=== PATIENT | male | born 1970 | race Asian ===

== ENCOUNTER 2017-07-13 06:00 | Emergency (ER) | payer OTHER ==
[~2017-07-13] VITALS: Ht 167.6 cm; Wt 59.0 kg
--- NOTE | 2017-07-13 06:00 | NUR ---
PATIENT BIB [facility] TO ER BED 2.
[2017-07-13 06:10] VITALS: BP 148/80
--- NOTE | 2017-07-13 06:20 | NUR ---
PT CAME INTO ED VIA EMS. PT STATES HE ARRIVED AT HIS DIALASIS APPOINTMENT BUT COULD NOT GET OUT OF HIS CAR D/T SEVERE RIGHT UPPER LEG PAIN. THE DIALASIS FACILITY BROUGHT PT INTO BUILDING WITH A WHEEL CHAIR. PT REFUSED SERVICE AND CALLED 911. PT VSS STABLE. PAIN IS 10/10. AWARE. CONTINUE TO MONITOR.
[2017-07-13 06:48] LABS: BASOPHILS # (AUTO) 0.2 K/uL (0.00-0.22); BASOPHILS % (AUTO) 2.9 % (0.0-2.0); EOSINOPHILS # (AUTO) 0.3 K/uL (0-0.4); EOSINOPHILS % (AUTO) 3.9 % (0.0-4.0); HEMATOCRIT 31.4 % (36-52); HEMOGLOBIN 10.4 g/dL (12.0-18.0); LYMPHOCYTES # (AUTO) 1.9 K/uL (2.0-11.5); LYMPHOCYTES % (AUTO) 25.6 % (20.5-51.1); MEAN CORPUSCULAR HEMOGLOBIN 30 pg (27-31); MEAN CORPUSCULAR HGB CONC 33 g/dL (33-37); MEAN CORPUSCULAR VOLUME 91 fL (80-94); MONOCYTES # (AUTO) 0.6 K/uL (0.8-1.0); MONOCYTES % (AUTO) 8.7 % (1.7-9.3); NEUTROPHILS # (AUTO) 4.4 K/uL (1.8-7.7); NEUTROPHILS % (AUTO) 58.9 % (42.2-75.2); PLATELET COUNT (AUTO) 165 K/uL (140-450); RED BLOOD CELL COUNT(AUTO) 3.45 MIL/uL (4.20-6.10); RED CELL DISTRIBUTION WIDTH 16.4 % (11.6-13.7); WHITE BLOOD COUNT (AUTO) 7.4 K/uL (4.8-10.8)
[2017-07-13 06:58] LABS: ALBUMIN 3.4 g/dL (3.4-5.0); ANION GAP 14.3 (8-16); CARBON DIOXIDE 26.6 mmol/L (21-32); POTASSIUM 3.9 mmol/L (3.5-5.1); TOTAL BILIRUBIN 0.6 mg/dL (0.0-1.0)
[2017-07-13] MEDS ORDERED: KETOROLAC 60 MG/2 ML VIAL IM ONE (07:10)
[2017-07-13 07:13] LABS: CREATININE 6.1 mg/dL (0.7-1.3)
--- NOTE | 2017-07-13 07:14 | NUR ---
PT CARE TRANSFERED. VSS STABLE. MD AND STAFF AWARE.
[2017-07-13 07:53] LABS: PROTHROMBIN TIME 11.8 secs (10.8-13.4)
--- NOTE | 2017-07-13 08:34 | NUR ---
PT RESTING ON BED,NO ACUTE DISTRESS NOTED;WILL CONTINUE TO MONITOR PT.
--- NOTE | 2017-07-13 08:55 | NUR ---
XRAY AT BEDSIDE.
--- NOTE | 2017-07-13 09:46 | NUR ---
PT SLEEPING AT THIS TIME;NAD;BREATHING EVEN AND UNLABORED;ALL MONITORS IN PLACED;WILL CONTINUE TO MONITOR.
--- NOTE | 2017-07-13 10:27 | NUR ---
Patient discharged with v/s stable. Written and verbal after care instructions given and explained. Patient alert, oriented and verbalized understanding of instructions. Wheel Chair Assisted with to car. All questions addressed prior to discharge. ID band removed. Patient advised to follow up with PMD. Rx of NAPROSYN AND NORCO given. Patient educated on indication of medication including possible reaction and side effects. Opportunity to ask questions provided and answered.
[2017-07-13 10:28] VITALS: BP 136/72
== END 2017-07-13 10:24 | disposition home or self-care (01) ==
LOC: MED 06:00
DX: E11.22 Type 2 diabetes mellitus with diabetic chronic kidney disease (principal); I12.0 Hypertensive chronic kidney disease with stage 5 chronic kidney disease or end stage renal disease; N18.6 End stage renal disease; C90.00 Multiple myeloma not having achieved remission; Z99.2 Dependence on renal dialysis
CPT/HCPCS: 36415; 71045; 72170; 73502; 80053; 85025; 85610; 85730; 93971; 96372; 99285; J1885; Q0092